=== PATIENT | female | born 1975 ===

== ENCOUNTER 2016-10-12 21:23 | Outpatient (CLI) | payer SELFPAY ==
[2016-10-12 21:53] VITALS: BP 118/56
[2016-10-12] MEDS ORDERED: LACTATED RINGERS 1,000 ML IV ONE (22:05)
--- NOTE | 2016-10-13 07:48 | Ultrasound Report ---
OB ULTRASOUND History: No care, unknown gestation. Technique: Transabdominal ultrasound with Doppler interrogation. Gestation: Single Position: Cephalic Amniotic Fluid: Normal FRANCES = 10.4 cm Placenta: Anterior Placental Grade: 2 Heart Rate: 157 BPM Cervical length: 2.4 cm (Normal > 3 cm) NEUROANATOMY VISUALIZED: Cisterna Magnum Cerebellum ANATOMY VISUALIZED: Stomach Kidneys Bladder Diaphragm Heart 3 Vessel Cord SPINE VISUALIZED: Limited spine due to position The following are not demonstrated due to maternal body habitus or lie: Lateral ventricles, choroid plexus, spine, 4 chamber heart and abdominal cord insertion. BPD: 8.9 cm = 36 w 1 d HC: 33.2 cm = 37 w 6 d AC: 33.0 cm = 36 w 6 d FL: 6.9 cm = 35 w 4 d HC/AC Ratio: 1.01 Cephalic Index: 77.5 Estimated Weight: 2971 grams LMP: Unknown Clinical age = w d EDC: US Gest. Age = 36 w 4 d EDC: 11/05/16
== END 2016-10-12 23:19 | disposition home or self-care (01) ==
LOC: TRG 21:23
PROVIDERS: ATTEND Obstetrics & Gynecology
DX: O26.893 Other specified pregnancy related conditions, third trimester (principal); Z3A.36 36 weeks gestation of pregnancy
CPT/HCPCS: 59025; 76805

== ENCOUNTER 2016-10-26 14:32 | Inpatient (IN) | payer MEDICAID ==
[2016-10-26] MEDS ORDERED: LACTATED RINGERS 1,000 ML ONE (15:11)
[2016-10-26] MEDS ORDERED: ePHEDrine SULFATE IV PRN ×2 (15:20→18:50)
[2016-10-26] MEDS ORDERED: XYLOCAINE 2% INFILTRATI ONE ×2 (15:20→15:32)
[2016-10-26] MEDS ORDERED: BRETHINE IVP PRN (15:20)
[2016-10-26] MEDS ORDERED: MINERAL OIL PO ONE (15:20)
[2016-10-26] MEDS ORDERED: MINERAL OIL PO PRN (15:20)
[2016-10-26] MEDS ORDERED: BRETHINE SUB-Q PRN (15:29)
--- NOTE | 2016-10-26 15:31 | History and Physical Report ---
History of Present Illness Date of examination: 10/26/16 Date of admission: 10/26/16 14:32 Chief complaint: Seen in office today for first PNV, was dilated to 5cm History of present illness: 40 yo , with no care, was seen in the office today for the first time. H as US confimation of EDC 10/28/2016. 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 History: herpes Family/Genetic History: none Social history: no significant social history - Obstetrical History Expected Date of Delivery: 10/28/16 Actual Gestation: 39 Week(s) 5 Day(s) : 9 Para: 8 Number of Living Children: 8 Medications and Allergies Allergies Allergy/AdvReac Type Severity Reaction Status Date / Time codeine Allergy Itching Verified 05/26/14 12:51 Home Medications Medication Instructions Recorded Confirmed Last Taken Type Pnv with Ca,No.72/Iron/FA [Preplus 1 tab PO DAILY 05/26/14 05/26/14 05/25/14 09: 00 History Ca-Fe 27 mg-FA 1 mg Tb] Valacyclovir HCl [Valacyclovir] 1 tab PO DAILY 05/26/14 05/26/14 05/25/14 09:00 History Ibuprofen [Motrin 800 MG tab] 800 mg PO Q8H PRN #90 tablet 05/27/14 Unknown Rx oxyCODONE /ACETAMINOPHEN [Percocet 1 tab PO Q6HR PRN #20 tablet 05/27/14 Unknown Rx 5/325 mg] Active Meds: Active Medications Ephedrine Sulfate (Ephedrine Sulfate) 10 mg IV Q2M PRN PRN Reason: Hypotension Stop: 10/26/16 15:25 Fentanyl (Sublimaze) 100 mcg IV Q2H PRN PRN Reason: Labor Pain Lactated Ringer's (Lactated Ringers) 1,000 mls @ 125 mls/hr IV DIRECT TRISTAN Oxytocin/Sodium Chloride (Pitocin/Ns 20 Unit/1000ml Drip) 20 units in 1,000 mls @ 125 mls/hr IV DIRECT TRISTAN Oxytocin/Sodium Chloride (Pitocin/Ns 30 Unit/500ml) 30 units in 500 mls @ 2 mls /hr IV TITR TRISTAN PRN Reason: Protocol Oxytocin/Sodium Chloride (Pitocin/Ns 30 Unit/500ml) 30 units in 500 mls @ 1 mls /hr IV TITR TRISTAN; 1 MILLIUNITS/MIN PRN Reason: Protocol Lidocaine (Xylocaine 2%) 20 ml INFILTRATI ONCE ONE Stop: 10/26/16 15:21 Mineral Oil (Mineral Oil) 30 ml PO QHS PRN PRN Reason: Constipation Mineral Oil (Mineral Oil) 30 ml PO ONCE ONE Stop: 10/26/16 15:21 Terbutaline Sulfate (Brethine) 0.25 mg SUB-Q ONCE PRN PRN Reason: Hyperstimulation/Hypertonicity Stop: 10/26/16 15:21 Terbutaline Sulfate (Brethine) 0.25 mg IVP ONCE PRN PRN Reason: Hyperstimulation/Hypertonicity Stop: 10/26/16 15:21 Review of Systems All systems: negative - Vital Signs Vital signs: Vital Signs Pulse BP 101 H 113/66 10/26/16 14:54 10/26/16 14:54 Temp Pulse Resp BP Pulse Ox 101 H 113/10/26/16 14:54 10/26/16 14:54 - Physical Exam Breasts: Positive: deferred Cardiovascular: Regular rate Lungs: Positive: Clear to auscultation Abdomen: Positive: soft Genitourinary (Female): Positive: normal external genitalia Vulva: both: normal Vagina: Positive: normal moisture Uterus: Positive: enlarged Anus/Rectum: Positive: normal perianal skin Extremities: Positive: normal Deep Tendon Reflex Grade: Normal +2 - Obstetrical FHR: category 1 Uterine Contraction Monitor Mode: External Cervical Dilatation: 5 Cervical Effacement Percentage: 70 station: -2 Uterine Contraction Pattern: Irregular Uterine Contraction Intensity: Mild Results All other labs normal. Assessment and Plan A: IUP @ 39 weeks active labor, GBS unknown P: Expect
[2016-10-26] MEDS ORDERED: SUBLIMAZE IV PRN (15:32)
[2016-10-26] MEDS ORDERED: PITOCin/NS 30 UNIT/500ML 30 UNITS/500 ML BAG IV SCH ×2 (16:00)
[2016-10-26] MEDS ORDERED: POLYCILLIN/NS 2 GM/100 ML 2 GM/100 ML BAG IV ONE (16:00)
[2016-10-26] MEDS ORDERED: PITOCin/NS 20 UNIT/1000ML DRIP 20 UNITS/1,000 ML BAG IV SCH (16:00)
[2016-10-26] MEDS ORDERED: LACTATED RINGERS 1,000 ML IV SCH ×2 (16:00)
[2016-10-26 16:26] LABS: Hematocrit 36.2 % (30.3-42.9); Mean Corpuscular HGB Conc 33 % (30-34); Mean Corpuscular Hemoglobin 31 pg (28-32); Mean Corpuscular Volume 94 fl (79-97); Platelet Count 391 K/mm3 (140-440); Red Blood Count 3.87 M/mm3 (3.65-5.03); Red Cell Distribution Width 13.5 % (13.2-15.2); White Blood Count 10.5 K/mm3 (4.5-11.0)
[2016-10-26] MEDS ORDERED: ePHEDrine SULFATE ONE (17:16)
[2016-10-26] MEDS ORDERED: fentaNYL-BUPIV 2 MCG/ML-0.125% 200 MCG/100 ML BAG EPIDURAL ONE (17:17)
--- NOTE | 2016-10-26 18:19 | Event Note ---
Date: 10/26/16 O: VE /-2, arom blood tinged fluid, ? light mec, CAT I tracing, Pit at 6mu, epidural in A: Active labor@ 38 weeks P: Expect
[2016-10-26] MEDS ORDERED: NARCAN 2 MG/2 ML IV PRN (18:50)
--- NOTE | 2016-10-26 18:50 | Anesthesia Consultation ---
Anesthesia Consult and Med Hx Date of service: 10/26/16 - Airway Anesthetic Teeth Evaluation: Good ROM Head & Neck: Adequate Mental/Hyoid Distance: Adequate Mallampati Class: Class II Intubation Access Assessment: Probably Good - Pre-Operative Health Status ASA Pre-Surgery Classification: ASA2 Proposed Anesthetic Plan: Epidural, Spinal - Pulmonary Hx Asthma: No COPD: No Hx Pneumonia: No - Cardiovascular System Hx Hypertension: No Hx Coronary Artery Disease: No Hx Heart Attack/AMI: No Hx Angina: No - Central Nervous System Hx Seizures: No Hx Back Pain: Yes (scoleosis) Hx Psychiatric Problems: No - Endocrine Hx Renal Disease: No Hx End Stage Renal Disease: No Hx Hypothyroidism: No Hx Hyperthyroidism: No - Hematic Hx Anemia: No Hx Sickle Cell Disease: No - Other Systems Hx Alcohol Use: No
[2016-10-26] MEDS ORDERED: fentaNYL-BUPIV 2 MCG/ML-0.125% 200 MCG/100 ML BAG EPIDURAL SCH (19:00)
[2016-10-26] MEDS ORDERED: POLYCILLIN/NS 1 GM/50 ML 1 GM/50 ML BAG IV SCH (19:33)
--- NOTE | 2016-10-26 21:00 | Procedure Note ---
OB Delivery Note - Delivery Date of Delivery: 10/26/16 Surgeon: RYAN ONEILL Estimated blood loss: 100cc - Vaginal Delivery presentation: vertex Delivery position: OA Intrapartum events: no care Delivery augmentation: rupture of membranes, pitocin Delivery monitor: external FHT, external uterine Route of delivery: Delivery placenta: spontaneous Delivery cord: 3 umbilical vessels Episiotomy: none Delivery laceration: none Anesthesia: epidural Delivery comments: of a viable male 6# 9oz on October 26 @ 2043 over intact perineum. 8/9. Placenta 3VCI. FF @ U-2 lochia small. MOther and baby doing well. - Infant A at 1 minute: 8 at 5 minutes: 9 (6-9) Infant Gender: Male
[2016-10-26] MEDS ORDERED: PHENERGAN PO PRN (21:01)
[2016-10-26] MEDS ORDERED: TYLENOL PO PRN (21:01)
[2016-10-26] MEDS ORDERED: BENADRYL PO PRN (21:01)
[2016-10-26] MEDS ORDERED: LANSINOH TP PRN (21:01)
[2016-10-26] MEDS ORDERED: SODIUM CHLORIDE FLUSH SYRINGE 10 ML IV SCH (22:00)
[2016-10-26] MEDS: MOTRIN PO SCH (22:27)
[2016-10-26] MEDS: PERCOCET 5/325 PO PRN (23:27)
[2016-10-26 23:59] LABS: HIV-1 Antigen p24 Non React (Non React); HIVR-1/2 Ab Non React (Non React)
[2016-10-27] MEDS: MOTRIN PO SCH ×4 (05:23→23:25)
[2016-10-27] MEDS ORDERED: BOOSTRIX IM ONE (06:00)
[2016-10-27 09:02] LABS: Hematocrit 30.6 % (30.3-42.9); Hemoglobin 10.1 gm/dl (10.1-14.3)
--- NOTE | 2016-10-27 09:31 | Progress Note ---
Assessment and Plan A: PPD 1 VSS Hx of Late PNC and GBS unknown P: Routine care Desires pills for contraception DC home today or tomorrow as desired by patient Subjective - Subjective Date of service: 10/27/16 Principal diagnosis: PPD 1 Interval history: 40 yo , with no care, was seen in the office yesterday for the first time. Has US confimation of EDC 10/28/2016. Delivered on 10/26/16 @ 2044. Patient reports: appetite normal, voiding normally, pain well controlled, ambulating normally : doing well Objective - Vital Signs Latest vital signs: Vital Signs Temp Pulse Pulse Resp BP BP Pulse Ox 10/27/16 04:57 98.5 F 81 20 121/70 10/26/16 22:55 98.8 F 86 20 120/71 10/26/16 22:27 18 10/26/16 21:55 90 127/78 10/26/16 21:50 98.5 F 78 18 127/68 97 10/26/16 21:45 95 H 127/68 10/26/16 21:35 97.5 F L 78 18 98 10/26/16 21:20 98.5 F 82 18 99 10/26/16 21:16 114 H 131/106 10/26/16 21:05 97.8 F 80 18 98 10/26/16 20:50 98.5 F 78 18 97 10/26/16 20:34 119 H 100 10/26/16 20:29 91 H 100 10/26/16 20:24 101 H 100 10/26/16 20:19 112 H 100 10/26/16 20:16 101 H 132/73 10/26/16 20:14 102 H 99 10/26/16 20:10 97.5 F L 92 H 18 125/68 99 10/26/16 20:08 105 H 99 10/26/16 20:03 100 H 99 10/26/16 19:58 106 H 100 10/26/16 19:54 91 H 100 10/26/16 19:48 81 100 10/26/16 19:44 90 125/68 99 10/26/16 19:40 74 131/67 10/26/16 19:39 94 H 99 10/26/16 19:35 90 126/75 10/26/16 19:33 91 H 100 10/26/16 19:29 82 130/80 10/26/16 19:28 82 99 10/26/16 19:25 84 133/69 10/26/16 19:24 91 H 99 10/26/16 19:19 82 136/74 10/26/16 19:18 76 100 10/26/16 19:15 76 136/68 10/26/16 19:13 85 99 10/26/16 19:10 83 138/74 10/26/16 19:09 83 98 10/26/16 19:05 83 133/72 10/26/16 19:03 84 99 10/26/16 18:59 86 141/79 10/26/16 18:58 71 100 10/26/16 18:55 89 138/71 10/26/16 18:53 94 H 99 10/26/16 18:51 99 H 137/77 10/26/16 18:48 94 H 99 10/26/16 18:46 99 H 160/70 10/26/16 18:43 84 99 10/26/16 18:39 116 H 123/70 10/26/16 18:38 106 H 99 10/26/16 18:35 105 H 123/64 10/26/16 18:33 117 H 98 10/26/16 18:30 116 H 139/74 10/26/16 18:29 135 H 100 10/26/16 18:25 107 H 136/67 10/26/16 18:24 115 H 99 10/26/16 18:19 108 H 137/72 10/26/16 18:18 110 H 100 10/26/16 18:14 108 H 129/77 10/26/16 18:13 103 H 99 10/26/16 18:09 94 H 128/91 86 10/26/16 18:08 108 H 100 10/26/16 18:04 116 H 100 10/26/16 18:01 61 76 L 10/26/16 17:58 115 H 98 10/26/16 17:54 107 H 100 10/26/16 17:48 86 100 10/26/16 17:44 98 H 100 10/26/16 17:39 97 H 100 10/26/16 17:38 88 81 L 10/26/16 17:16 18 10/26/16 16:47 98.5 F 101 H 20 113/66 98 10/26/16 14:54 101 H 113/66 Intake and Output 10/26/16 10/27/16 10/27/16 22:59 06:59 14:59 Intake Total 1100 Output Total 350 Balance 750 Intake: IV 500 [id number] 2 MCG/ML-0 500 .125% 200 mcg In 100 ml @ 12 mls/hr EPIDURAL TITR TRISTAN Rx#:[id number] Oral 360 Intake, Free Water 240 Output: Urine 350 Void 350 Other: Total, Intake Amount 360 Total, Output Amount 350 Weight 211 lb Estimated Blood Loss 100 - Exam Cardiovascular: Present: Regular rate Lungs: Present: Normal air movement Vulva: both: normal (scant lochia) Uterus: Present: fundal height below umbilicus Extremities: Present: normal Deep Tendon Reflex Grade: Normal +2 - Allied health notes Allied health notes reviewed: nursing
--- NOTE | 2016-10-27 09:41 | Discharge Summary ---
Providers - Providers Date of Admission: 10/26/16 14:32 Date of discharge: 10/27/16 Attending physician: NACHO LUCERO MD Primary care physician: NACHO LUCERO MD Hospitalization Reason for admission: active labor, IUP at term Delivery: Laceration: none Other procedures: none Discharge diagnosis: IUP at term delivered [place] baby: male Hospital course: uneventful Condition at discharge: Good Disposition: DISCHARGED TO HOME OR SELFCARE Plan - Provider Discharge Summary Activity: routine, no sex for 6 weeks, no heavy lifting 4 weeks, no strenuous exercise Diet: routine Instructions: routine Additional instructions: [] Smoking cessation referral if applicable(refer to patient education folder for contact #) [] Refer to [facility] Booklet Call your doctor immediately for: * Fever > 100.5 * Heavy vaginal bleeding ( >1 pad per hour) * Severe persistent headache * Shortness of breath * Reddened, hot, painful area to leg or breast * Drainage or odor from incision. * Keep incision clean and dry at all times and follow doctor's instructions regarding bathing/showering - Follow up plan Follow up: [facility] [Provider Group] - 6 Weeks
[2016-10-27] MEDS: PERCOCET 5/325 PO PRN ×3 (11:26→23:24)
[2016-10-27] MEDS ORDERED: FLUARIX QUAD 2016-2017(36 MOS+) IM ONE (12:00)
--- NOTE | 2016-10-27 12:34 | Progress Note ---
Subjective Date of service: 10/27/16 Principal diagnosis: PPD 1 Interval history: 1st day after normal vaginal delivery Patient is in the bed, comfortable. Pain is well controlled with pain meds. Ambulated well. No residual neurological deficit. No anesthesia complications Objective - Constitutional Vitals: Vital Signs - 12hr 10/27/16 10/27/16 04:57 08:20 Temperature 98.5 F 98.6 F Pulse Rate [ 81 87 Right From Monitor] Respiratory 20 20 Rate Blood Pressure 121/70 125/66 [Right Arm] - Labs CBC & Chem 7: 10/27/16 08:31
[2016-10-28] MEDS: MOTRIN PO SCH ×3 (05:27→17:30)
[2016-10-28] MEDS: PERCOCET 5/325 PO PRN ×3 (05:27→17:30)
[2016-10-28] MEDS ORDERED: FLUARIX QUAD 2016-2017(36 MOS+) IM ONE (11:00)
[2016-10-28 17:33] VITALS: BP 123/72
== END 2016-10-28 21:45 | disposition home or self-care (01) | DRG 775 ==
LOC: LD 14:32 → OB 22:36
PROVIDERS: ADMIT Obstetrics & Gynecology; ATTEND Obstetrics & Gynecology
PROC: 10E0XZZ Delivery of Products of Conception, External Approach (ICD-10-PCS; principal; 2016-10-26)
PROC: 00HU33Z Insertion of Infusion Device into Spinal Canal, Percutaneous Approach (ICD-10-PCS; principal; 2016-10-26)
PROC: 10907ZC Drainage of Amniotic Fluid, Therapeutic from Products of Conception, Via Natural or Artificial Opening (ICD-10-PCS; principal; 2016-10-26)
PROC: 3E0S3CZ (ICD-10-PCS; principal; 2016-10-26)
DX: O80 Encounter for full-term uncomplicated delivery (principal); Z37.0 Single live birth; Z3A.39 39 weeks gestation of pregnancy; Z88.5 Allergy status to narcotic agent
CPT/HCPCS: 36415; 80074; 85014; 85018; 85027; 86592; 86762; 86850; 86900; 86901; 87806; 90471; 90472; 90686; 90715; 99211; G0463; J0290; J2590; J3010; J7120